=== PATIENT | male | born 1985 | race African-American/Black ===

== ENCOUNTER 2019-12-14 10:14 | Emergency (ER) | payer OTHER ==
[2019-12-15 12:19] LABS: SARS-CoV-2 MS2 Positive; SARS-CoV-2 N Gene Positive; SARS-CoV-2 S Gene Positive; SARS-CoV-2 orf1ab Positive
== END 2019-12-14 10:36 | disposition home or self-care (01) ==
LOC: ERS 10:14
DX: U07.1 COVID-19 (principal); K21.9 Gastro-esophageal reflux disease without esophagitis; F17.220 Nicotine dependence, chewing tobacco, uncomplicated
CPT/HCPCS: 87635; U0003

== ENCOUNTER 2019-12-28 10:41 | Emergency (ER) | payer BC, OTHER ==
[2019-12-29 15:22] LABS: SARS-CoV-2 MS2 Positive; SARS-CoV-2 N Gene Positive; SARS-CoV-2 S Gene Positive; SARS-CoV-2 orf1ab Positive
== END 2019-12-28 11:52 | disposition home or self-care (01) ==
LOC: ERS 10:41
DX: U07.1 COVID-19 (principal); F17.220 Nicotine dependence, chewing tobacco, uncomplicated; K21.9 Gastro-esophageal reflux disease without esophagitis
CPT/HCPCS: 87635; 99283; U0003

== ENCOUNTER 2023-03-24 13:42 | Emergency (ER) | payer OTHER, BC ==
[~2023-03-24 13:42] MED LIST: Iopamidol-370 76% 500 ML MDV (1 ML CHARGE) ONE
[2023-03-24] MEDS ORDERED: fentaNYL 50 mcg/mL 1 mL Vial ONE (14:27)
== END 2023-03-24 16:33 | disposition home or self-care (01) ==
LOC: ERS 13:42
DX: S12.601A Unspecified nondisplaced fracture of seventh cervical vertebra, initial encounter for closed fracture (principal); M25.512 Pain in left shoulder; K21.9 Gastro-esophageal reflux disease without esophagitis; E66.9 Obesity, unspecified; V89.2XXA Person injured in unspecified motor-vehicle accident, traffic, initial encounter
CPT/HCPCS: 70450; 71260; 72125; 74177; 96374; J3010; Q9967